=== PATIENT | male | born 1985 | race Caucasian/White ===

== ENCOUNTER 2018-01-31 22:35 | Emergency (ER) | payer OTHER | END 2018-01-31 22:41 | disposition home or self-care (01) | LOC: M ED 22:35 | DX: S93.602A Unspecified sprain of left foot, initial encounter (principal); X50.1XXA Overexertion from prolonged static or awkward postures, initial encounter; Y92.89 Other specified places as the place of occurrence of the external cause | CPT/HCPCS: 73630 ==